=== PATIENT | female | born 1950 | race Caucasian/White ===

== ENCOUNTER 2017-09-24 12:27 | Emergency (ER) | payer OTHER ==
[~2017-09-24] VITALS: Ht 170.2 cm; Wt 49.9 kg
[~2017-09-24 12:27] MED LIST: ANTIBIOTIC; ASPIR 8181 MG PO; ASPIRIN81 M2; BACTRIM DS TAB1 EACH PO; BENADRYL25 MG PO; CLONAZEPAM 1 MG1 M1 PO; COUMADIN 4 MG TA4 M1 PO; COUMADIN6 MG PO; IRON325 PO; JANTOVEN10 MG PO; KEFLEX500 MG PO; LEXAPRO 10 MG T10 M1 PO; RESTLESS LEG MED; STOOL SOFTENER100 MG; STOOL SOFTENER100 MG PO; XANAX 0.5 MG0.5 M1 PO; ZOLOFT 50 MG TA50 M1; ZOLOFT25 MG PO
[2017-09-24] MEDS ORDERED: BACTRIM DS TAB1 EACH PO (12:38)
[2017-09-24 13:14] LABS: INFLUENZA A ANTIGEN None Detected (None Detect); INFLUENZA B ANTIGEN None Detected (None Detect)
[2017-09-24] MEDS ORDERED: ACETAMINOPHEN-1 EAC1 PO (13:30)
[2017-09-24] MEDS ORDERED: ZPAK PO (13:30)
[2017-09-24 13:39] VITALS: BP 116/43
== END 2017-09-24 13:40 | disposition home or self-care (01) ==
LOC: M.ERS 12:27
PROVIDERS: Physician Assistant
DX: J02.9 Acute pharyngitis, unspecified (principal); J34.89 Other specified disorders of nose and nasal sinuses; R05 Cough; I48.91 Unspecified atrial fibrillation; F32.9 Major depressive disorder, single episode, unspecified; Z87.440 Personal history of urinary (tract) infections; Z86.73 Personal history of transient ischemic attack (TIA), and cerebral infarction without residual deficits; Z88.1 Allergy status to other antibiotic agents; Z88.0 Allergy status to penicillin

== ENCOUNTER 2017-10-06 15:55 | Emergency (ER) | payer OTHER ==
[~2017-10-06] VITALS: Ht 170.2 cm; Wt 49.9 kg
[~2017-10-06 15:55] MED LIST changes: +ACETAMINOPHEN-1 EAC1 PO; +ZPAK PO
[2017-10-06 16:26] LABS: ABSOLUTE BASOPHILS 0.1 thou/uL (0.0-0.2); ABSOLUTE EOSINOPHILS 0.1 thou/uL (0.0-0.7); ABSOLUTE LYMPHOCYTES 1.3 thou/uL (0.8-5.3); ABSOLUTE MONOCYTES 0.5 thou/uL (0.0-1.2); ABSOLUTE NEUTROPHILS 3.1 thou/uL (1.6-8.1); EOSINOPHILS 2.2 %; HEMATOCRIT 36.4 % (37.0-47.0); HEMOGLOBIN 12.3 gm/dL (12.0-15.0); LYMPHOCYTES 26.1 %; MCH 32.3 pg (26.0-34.0); MCHC 33.8 g/dL (28.0-37.0); MCV 95.6 fL (80.0-100.0); MONOCYTES 9.8 %; MPV 8.8 fl. (7.2-11.1); NUCLEATED RBCS 0 /100WBC; PLATELET COUNT* 334 thou/uL (150-400); POLYS 60.9 %; RDW-CV 12.4 % (10.5-14.5); WBC 5.1 thou/uL (4.0-11.0)
[2017-10-06 16:30] LABS: ANION GAP 8 mmol/L (7-16); BUN 22 mg/dL (7-18); CALCIUM 9.1 mg/dL (8.5-10.1); CHLORIDE 108 mmol/L (98-107); CO2 28 mmol/L (21-32); CREATININE 1.3 mg/dL (0.6-1.3); GLUCOSE 123 mg/dL (70-99); POTASSIUM 3.6 mmol/L (3.5-5.1); SODIUM 144 mmol/L (136-145)
[2017-10-06 16:37] LABS: ALBUMIN 3.7 g/dL (3.4-5.0); ALKALINE PHOSPHATASE 75 U/L (46-116); SGOT 24 U/L (15-37); SGPT 20 U/L (30-65); TOTAL BILIRUBIN 0.8 mg/dL (<0.1-1.0); TOTAL PROTEIN 6.9 g/dL (6.4-8.2); TROPONIN-I LEVEL <0.06 ng/mL (<0.06)
[2017-10-06] MEDS ORDERED: ATIVAN1 MG PO (16:57)
[2017-10-06 17:21] VITALS: BP 161/55
--- NOTE | 2017-10-07 12:24 | EKG ---
[place] [address] ELECTROCARDIOGRAM REPORT Name: JARRETT DIAZ Room: [facility]#: [id number] Admission: 10/06/17 Attend Phys: Discharge: 10/06/17 Date of : 46 Report #: [id number] THIS REPORT FOR: //name// [facility] ED Test Date: 2017-10-06 Test Time: 16:02:29 Pat Name: JARRETT LEOBALKimberly Department: Room: Gender: F Bell [place]ck Hammerer: MS : 1950 Requested By: Brandon Damico Order Number: [id number] MD: Beau Chavez Measurements Intervals [place] Rate: 93 P: 76 WI: 48 QRS: 249 QRSD: 102 T: 59 QT: 382 QTc: 476 Interpretive Statements Atrial-sensed ventricular-paced rhythm No further analysis attempted due to paced rhythm Compared to ECG 02/08/2017 16:04:23 No significant changes Electronically Signed On 10-07-2017 12:23:55 GRADUATE RN by Beau Chavez [email or web address] <ELECTRONICALLY SIGNED> By: Beau Chavez MD, [facility] 10/07/17 1223 1602 160 Beau Chavez MD, FAC /EPI
== END 2017-10-06 17:23 | disposition home or self-care (01) ==
LOC: M.ERS 15:55
PROVIDERS: Emergency Medicine Emergency Medical Services
DX: F41.9 Anxiety disorder, unspecified (principal); F41.0 Panic disorder [episodic paroxysmal anxiety]; I48.91 Unspecified atrial fibrillation; F32.9 Major depressive disorder, single episode, unspecified; Z86.73 Personal history of transient ischemic attack (TIA), and cerebral infarction without residual deficits; Z88.0 Allergy status to penicillin; Z88.1 Allergy status to other antibiotic agents

== ENCOUNTER 2017-12-18 09:40 | Emergency (ER) | payer OTHER ==
[~2017-12-18] VITALS: Ht 167.6 cm; Wt 56.0 kg
[~2017-12-18 09:40] MED LIST changes: +ATIVAN1 MG PO
[2017-12-18 10:03] LABS: URINE BILIRUBIN NEGATIVE (Negative); URINE BLOOD NEGATIVE (Negative); URINE CLARITY CLEAR; URINE COLOR YELLOW; URINE GLUCOSE-RANDOM NEGATIVE (Negative); URINE KETONES TRACE (Negative); URINE LEUKOCYTES-REFLEX NEGATIVE (Negative); URINE NITRITE-REFLEX NEGATIVE (Negative); URINE PROTEIN NEGATIVE (Negative); URINE SPECIFIC GRAVITY >= 1.030 (1.005-1.030); URINE UROBILINOGEN 0.2 E.U./dl (0.2-1.0)
[2017-12-18 10:17] LABS: ABSOLUTE EOSINOPHILS 0.2 thou/uL (0.0-0.7); ABSOLUTE LYMPHOCYTES 1.2 thou/uL (0.8-5.3); ABSOLUTE MONOCYTES 0.2 thou/uL (0.0-1.2); ABSOLUTE NEUTROPHILS 1.2 thou/uL (1.6-8.1); BASOPHILS 0.2 %; EOSINOPHILS 6.7 %; HEMATOCRIT 35.6 % (37.0-47.0); HEMOGLOBIN 12.3 gm/dL (12.0-15.0); LYMPHOCYTES 42.3 %; MCH 32.2 pg (26.0-34.0); MCHC 34.4 g/dL (28.0-37.0); MCV 93.6 fL (80.0-100.0); MONOCYTES 7.1 %; MPV 8.3 fl. (7.2-11.1); NUCLEATED RBCS 0 /100WBC; PLATELET COUNT* 213 thou/uL (150-400); POLYS 43.7 %; RBC 3.81 mil/uL (4.20-5.00); WBC 2.7 thou/uL (4.0-11.0)
[2017-12-18 10:39] LABS: ANION GAP 12 mmol/L (7-16); BUN 21 mg/dL (7-18); CHLORIDE 107 mmol/L (98-107); CO2 21 mmol/L (21-32); CREATININE 1.3 mg/dL (0.6-1.3); GLUCOSE 87 mg/dL (70-99); POTASSIUM 3.2 mmol/L (3.5-5.1); SODIUM 140 mmol/L (136-145)
[2017-12-18 10:46] LABS: ALBUMIN 3.9 g/dL (3.4-5.0); ALKALINE PHOSPHATASE 67 U/L (46-116); LIPASE 232 U/L (73-393); SGOT 25 U/L (15-37); SGPT 16 U/L (30-65); TOTAL BILIRUBIN 0.7 mg/dL (<0.1-1.0); TOTAL PROTEIN 7.1 g/dL (6.4-8.2); TROPONIN-I LEVEL <0.06 ng/mL (<0.06)
[2017-12-18] MEDS ORDERED: ULTRAM 50MG TAB50 MG PO (11:43)
[2017-12-18 12:28] VITALS: BP 134/52
[2017-12-18 12:31] LABS: INR 4.4; PROTIME 42.1 Seconds (9.20-11.50)
--- NOTE | 2017-12-18 14:58 | EKG ---
[place] [address] ELECTROCARDIOGRAM REPORT Name: JARRETT DIAZ [facility] [id number] Admission: 12/18/17 Attend Phys: Discharge: 12/18/17 Date of : 46 Report #: [id number] THIS REPORT FOR: //name// [facility] ED Test Date: 2017-12-18 Test Time: 10:10:44 Pat Name: AJRRETT DIAZ Department: Room: Gender: F Panama Hat Blocker: Shauna MATHUR : 1950 Requested By: Stewart Mandujano Order Number: [id number] MD: Beau Chavez Measurements Intervals [place] Rate: 86 P: 0 NC: 74 QRS: 250 QRSD: 100 T: QT: 418 QTc: 500 Interpretive Statements Atrially sensed Ventricular-paced rhythm No further analysis attempted due to paced rhythm Compared to ECG 10/06/2017 16:02:29 No changes noted Electronically Signed On 12-18-2017 14:58:05 CDT by Beau Chavez [email or web address] <ELECTRONICALLY SIGNED> By: Beau Chavez MD, [facility] 12/18/17 1458 1010 1010 Beau Chavez MD, [facility] /EPI
== END 2017-12-18 12:36 | disposition home or self-care (01) ==
LOC: M.ERS 09:40
PROVIDERS: Family Medicine
DX: R10.30 Lower abdominal pain, unspecified (principal); I48.91 Unspecified atrial fibrillation; F32.9 Major depressive disorder, single episode, unspecified; Z87.440 Personal history of urinary (tract) infections; Z86.73 Personal history of transient ischemic attack (TIA), and cerebral infarction without residual deficits; Z88.1 Allergy status to other antibiotic agents; Z88.0 Allergy status to penicillin

== ENCOUNTER → 2018-01-23 | Outpatient (CLI) | payer OTHER ==
[~2018-01-23] MED LIST changes: +ULTRAM 50MG TAB50 MG PO
[2018-01-23 10:46] LABS: INR 1.2; PROTIME 11.9 Seconds (9.20-11.50)
== END ==
LOC: M.LAB 03:58
PROVIDERS: Anesthesiology
DX: Z01.812 Encounter for preprocedural laboratory examination (principal)

== ENCOUNTER → 2018-03-28 | Outpatient (CLI) | payer OTHER | LOC: M.RAD 15:26 | DX: N91.2 Amenorrhea, unspecified (principal); I48.91 Unspecified atrial fibrillation; Z78.0 Asymptomatic menopausal state ==

== ENCOUNTER → 2018-06-18 | Outpatient (CLI) | payer OTHER | LOC: M.RAD 12:55 | DX: Z12.31 Encounter for screening mammogram for malignant neoplasm of breast (principal) ==

== ENCOUNTER → 2018-07-15 | Outpatient (CLI) | payer OTHER ==
[~2018-07-15] VITALS: Ht 170.2 cm; Wt 54.0 kg
[2018-07-15 08:47] LABS: HEMATOCRIT 35.6 % (37.0-47.0); MCH 32.4 pg (26.0-34.0); MCHC 33.7 g/dL (28.0-37.0); MCV 96.3 fL (80.0-100.0); NUCLEATED RBCS 0 /100WBC; PLATELET COUNT* 223 thou/uL (150-400); RDW-CV 13.1 % (10.5-14.5); WBC 3.6 thou/uL (4.0-11.0)
[2018-07-15 08:56] LABS: APTT 26.4 Seconds (25.0-31.3); INR 1.2; PROTIME 12.1 Seconds (9.20-11.50)
[2018-07-15 09:03] VITALS: BP 159/66
[2018-07-15 09:29] LABS: ABSOLUTE LYMPHOCYTES 1.1 thou/uL (0.8-5.3); ABSOLUTE NEUTROPHILS 2.4 thou/uL (1.6-8.1); ATYPICAL LYMPHS 7 %; METAMYELOCYTES 1 %
[2018-07-15 09:30] LABS: PLATELET ESTIMATE ADEQUATE
[2018-07-15 10:02] VITALS: BP 140/64
[2018-07-15 10:21] VITALS: BP 144/56
[2018-07-15 10:34] VITALS: BP 145/55
--- NOTE | 2018-07-25 18:07 | PATH ---
[address] [address] PATHOLOGY RPT PROCEDURE Name: EMILYMAR FLETCHER Room: [facility].#: [id number] Admission: 07/15/18 Date of : 46 Discharge: Report #: [id number] Path Case #: [id number] [facility] Accession Number: [id number] . 01 Material submitted: . PART A: BONE MARROW BX PART B: BONE MARROW CLOT PART C: BONE MARROW ASP PART D: PERIPHERAL SMEAR PART E: BONE MARROW FLOW . 01 Clinical history: . This is a 67-year-old woman with anemia, leukopenia and fatigue. . 02 Diagnosis: Bone marrow aspirate, biopsy, cell clot and peripheral blood: - Peripheral blood with mild leukopenia and rare circulating less mature myeloid cells and atypical / reactive appearing lymphocytes. - Normocellular bone marrow with trilineage hematopoiesis, mild trilineage dyspoiesis and no evidence of lymphoma or acute leukemia (see comment). - Rare interstitial non-necrotizing granulomas. - Only trace stainable iron. . (CLW:mmsanty; 07/16/18) . . Please see included [facility] report [id number]. AZJ/07/16/2018 . 02 Comment: Overall, the bone marrow is normocellular for the patient's age with trilineage hematopoiesis, mild dyspoiesis and no evidence of lymphoma or acute leukemia. Rare interstitial non-necrotizing granulomas are noted. Special stains for micro-organisms are pending and will be reported as an addendum. The dyspoiesis is mild and while it could possibly represent a low grade myelodysplastic syndrome, it does not meet the morphologic criteria for myeloid dysplasia. Of note, only trace stainable iron is identified. Correlation with clinical history, additional laboratory data and cytogenetics is recommended. . (CLW:mmsanty; 07/16/18) . 02 Addendum: . Properly-controlled special stains are performed: . Block A1: AFB - Negative for acid-fast bacilli GMS - [place] [address] PATHOLOGY RPT PROCEDURE Name: MAR GLOVER [id number] Admission: 07/15/18 Date of : 46 Discharge: Report #: [id number] Path Case #: [id number] . The final diagnosis remains unchanged. . (CLW:mml; 07/19/18) . . Professional services performed by [facility] at [facility], [address] [place] [address]. Technical services performed at [address] [place] [address]. [facility]/07/19/2018 Addendum Electronically Signed by Tete Krishna MD, Pathologist Addendum #2: Special studies [place] [facility] [address] [place] [address] [address], [place], [address], on case [id number], labeled with their number [id number], dated 07/24/2018. . Cytogenetic Analysis Report . RESULT: Normal Female Karyotype 46,XX(20) . Specimen Type: Bone Marrow . Indication for Study: Leukopenia, Anemia . INTERPRETATION: Cytogenetic analysis revealed no evidence of an acquired clonal abnormality. These findings should be interpreted in the context of clinical and histopathologic findings. . See Flow Cytometry report [id number] for further information. . Number of Metaphases Counted: 20 Banding: G-banding Number of Metaphase Cells Analyzed: 20 Band Level: 400 Number of Metaphase Cells Karyotyped: 2 Cultures Established: 24/48 hour unstimulated . . at [employer]. Jocelynn Torrez, PhD, FACMG Director of Clinical Cytogenetics . Disclaimer This Test was performed by [facility]. at [address] [place] [address], [address], [place], [address]. . [facility] is a business unit of [employer] a wholly-owned subsidiary of [place] [address] PATHOLOGY RPT PROCEDURE Name: MAR GLOVER Room: [facility]#: [id number] Admission: 07/15/18 Date of : 46 Discharge: Report #: [id number] Path Case #: [id number] [employer]. . . Any image(s) that accompany this report is/are a underwriting account representative image(s) only and should not be used to render a diagnosis. . Based on the resolution of this study, standard cytogenetic methodology does not routinely detect subtle or sub-microscopic rearrangements or low level mosaicism. . A complete copy of the report is on file. . Professional services performed by [facility] at [address], [place] [address]. Technical services performed by [employer]. at [address], [place] [address]. . (AM[facility] 07/24/2018) . [place]/07/25/2018 Addendum Electronically Signed by Tete Krishna MD, Pathologist . 02 Electronically signed: . Tete Krishna MD, Pathologist NPI- [id number] . 01 Gross description: . A. The specimen is received in formalin, labeled "Mar Glover, left hip bone core", are two irregular fragments of faria brown, hemorrhagic bone faria brown, hemorrhagic bone measuring 0.2 x 0.1 x 0.1 and 0.4 x 0.2 x 0.1 cm, entirely submitted in A1 after decalcification. . B. The specimen is received in formalin, labeled "Mar Glover, left hip clot", is a dark brown hemorrhagic clot measuring 2.0 x 1.7 x 1.5 cm, entirely submitted in B1-B3. (SWS; 07/15/2018) SHS/SHS . 02 Microscopic: . CBC Data (07/15/18): WBC 3,600/uL, RBC 3.70, hemoglobin 12.0 g/dL, hematocrit 35.6%, MCV 96.3 fL, MCH 32.4 pg, MCHC 33.7 g/dL, RDW 13.1%, and platelet count 223,000/uL. White blood cell differential: segs 67%, lymphs 24%, monos 1%, metas 1%, and atypical lymphs 7%. . Peripheral Blood Smear: Cytomorphological examination of the Campbell's stained peripheral blood smear confirms the provided data. Red blood cells are normocytic and are without significant anisopoikilocytosis. White blood cells are mildly decreased in number. There are predominantly [place] [address] PATHOLOGY RPT PROCEDURE Name: MAR GLOVER Room: [facility]#: [id number] Admission: 07/15/18 Date of : 46 Discharge: Report #: [id number] Path Case #: [id number] are without significant dyspoiesis or significant left shift. Lymphocytes are predominantly small, round, and mature appearing with condensed chromatin and scant cytoplasm with admixed large granular lymphocytes and reactive-appearing lymphocytes. On scanning, no markedly atypical lymphoid cells are seen. Monocytes are mature. Platelets are adequate in number and mainly normal in morphology with rare larger platelets noted. . Aspirate Smears: Cytomorphological examination of the Campbell's stained aspirate smears shows spicules present. The overall cellularity is approximately 20-30%. The myeloid to erythroid ratio is 2:1. Full myeloid maturation is identified and is mildly dyspoietic with abnormal nuclear lobation focally. Erythroid maturation is mildly dyserythropoietic with irregular nuclear contours and mildly left shifted maturation. In a 500 cell differential, there are 1% blasts (no Anup rods are seen), 57% more differentiated myeloids, 28% erythroid precursors and 14% lymphocytes. Megakaryocytes are proportional in number and both normal and abnormal in morphology with variable sizes and nuclear abnormalities including small and/or hypolobated forms present. No lymphoid aggregates or markedly atypical lymphoid cells are seen. Small collections of histiocytes are noted. Plasma cells are without atypia. Iron stain of the aspirate smear shows only trace stainable iron. No ringed sideroblasts are identified. . Core Biopsy and Cell Clot: The decalcified bone marrow core biopsy is small, but adequate. The bone marrow is normocellular with an overall cellularity of approximately 30%. The myeloid to erythroid ratio is 2:1. Myeloid and erythroid maturation are mildly dyspoietic. Megakaryocytes are normal in number and both normal and abnormal in morphology. A rare interstitial lymphoid aggregate composed of small lymphocytes is noted. Rare small non-necrotizing granulomas are present. No markedly atypical lymphoid cells are seen. Bony trabeculae and blood vessels are unremarkable. The cell clot has a rare spicule present that is similar in cellularity and differential morphology as previously described. . Properly controlled special stains are performed. . Block A1: Iron - 0/4+ iron positivity Reticulin - No significant reticulin fibrosis . Iron (block B1, B2 and B3) - 0/4+ iron positivity with a rare spicule present . Flow Cytometry: Flow cytometric immunophenotypic analysis was performed at [facility]. The diagnosis is "no immunophenotypic evidence of an abnormal myeloid maturation or an increased blast population, no immunophenotypic evidence of a T-cell or B-cell lymphoproliferative disorder." [place] [address] PATHOLOGY RPT PROCEDURE Name: MAR GLOVER Room: [facility]#: [id number] Admission: 07/15/18 Date of : 46 Discharge: Report #: [id number] Path Case #: [id number] 7% lymphocytes. Of the lymphocytes, there are 0.9% B-cells that are polytypic / polyclonal. T-cells have a CD4/CD8 ratio of 3.6 and no aberrant T-cell antigen expression. There are 0.4% myeloid blasts. Flow cytometric analysis detected no immunophenotypic evidence of increased blast population. Please see separate flow cytometry report from [facility] ([id number]). . Cytogenetics: Cytogenetic chromosomal analysis is pending at [facility] ([id number]). . (CLW:edwin; 07/16/18) . . . Special studies report received from [facility], [address] [place] [address], [address], [place], [address], on case [id number], labeled with their number [id number], dated 07/16/2018. . Flow Cytometry: Hematologic Neoplasia Assessment . Clinical History Leukopenia, anemia and fatigue . Indication for Study Evaluation for hematolymphoid neoplasia . Specimen Bone Marrow Aspirate . Viability 90% (7AAD exclusion) . Interpretation Bone Marrow Aspirate: - No immunophenotypic evidence of an abnormal myeloid maturation or an increased blast population. - No immunophenotypic evidence of a T-cell or B-cell lymphoproliferative disorder. . Comments Flow cytometric analysis detected no immunophenotypic evidence of increased blast population. Myeloproliferative and myelodysplastic disorders cannot be categorically excluded by flow cytometric analysis. Correlation with available clinical, laboratory, and pending bone marrow morphologic data is recommended for an accurate diagnosis. Cytogenetic studies are also pending and will be reported separately. . Populations Analyzed [facility] [address] [address] PATHOLOGY RPT PROCEDURE Name: AHMETESSENCEMAR CHANCE Room: [facility]#: [id number] Admission: 07/15/18 Date of : 46 Discharge: Report #: [id number] Path Case #: [id number] Myeloid Blasts: 0.4% No significant immunophenotypic abnormalities Lymphocytes: 7% B-cells: 0.9%, polytypic/polyclonal sIg light chain pattern T-cells: no significant abnormalities of the markers tested CD4+ T-cells: 3.5% (including 0.8% CD57+ cells) CD8+ T-cells: 1.0% (including 0.3% CD57+ cells) CD4:CD8: 3.6 NK cells: 1.1% Neutrophilic Cells: 84% No significant abnormalities of the markers tested Monocytic Cells: 4% No significant abnormalities of the markers tested Eosinophils: 3% No relative increase Basophils: 0.4% No relative increase Plasma Cells: 0.1% Few detected; no overt abnormalities of the surface markers tested (plasma cells are typically underrepresented by flow cytometry; cytoplasmic light chains were not assessed) Hematogones: 0.4% Normal B-cell precursors CD45 Negative 0.4% No significant reactivity with the markers Events/Debris: tested (may represent unlysed red blood cells, erythroid precursors, platelets, debris, etc.) (erythroid precursors may be underrepresented due to sample lysis/processing) . . Morphologic Evaluation A slide was reviewed for quality eng purposes only. . Specimen Description Total Cell Yield: 5.36 X 10 and 6 . Reagent(s) Used CD2, CD3, CD4, CD5, CD7, CD8, CD10, CD11b, CD13, CD14, CD16, CD19, CD20, CD33, CD34, CD38, CD45, CD56, CD57, CD64, CD117, HLA-DR, kappa, lambda . at [facility]. Jerrod Julien MD Pathologist . . Intended Use Flow cytometry is optimally used to immunophenotypically characterize abnormal populations when they are detected. Negative flow cytometry results do not exclude lymphoma or neoplasia. Possible false negative flow cytometry results may occur in, but are not limited to, the following: neoplastic cells in Hodgkin lymphoma [place] [address] PATHOLOGY RPT PROCEDURE Name: MAR GLOVER Room: [facility]#: [id number] Admission: 07/15/18 Date of : 46 Discharge: Report #: [id number] Path Case #: [id number] represented by routine clinical flow cytometry; neoplastic cells may be lost or inadequately represented due to degeneration, sample processing, sampling artifact, or patchy involvement; plasma cells are typically underrepresented by flow cytometry; immature cells/blasts may be underrepresented due to hemodilution; myeloproliferative disorders and low grade myelodysplasia may not have immunophenotypic abnormalities or increased blasts. Correlation with all available clinical, laboratory, and morphologic data is always necessary to assess for the possibility of false negative flow cytometry results and to establish a diagnosis. Each marker in this analysis was used to assess for potential antigenic abnormalities or to evaluate detected abnormalities. . Disclaimer(s) This test was performed at [facility]. at [address], [place], [address] - [employer] Mechan[employer]: Richard Valera MD. [employer] is a business unit of [employer] a wholly-owned subsidiary of [employer]. . Any image or images that accompany this report are underwriting account representative images only and should not be used to render a diagnosis. . This test was developed and its performance characteristics determined by [employer]. It has not been cleared or approved by the Food and Drug Administration (FDA). The FDA has determined that such clearance or approval is not necessary. . For inquiries, the physician may contact Lab: [phone] . A complete copy of the report is on file. . Professional services performed by [facility] at [address], [place] [address]. Technical services performed by [employer]. at [address], [place] [address]. . (AMJ 07/16/2018) . 02 Pathologist provided ICD-10: D72.819, D75.89 . 02 CPT . 391175, 297037, 782560, 391496, 347442, 889555, 625880, 138581, 005098, 532493, 955403, 349956, 445398 Specimen Comment: A courtesy copy of this report has been sent to Specimen Comment: [phone], , . Specimen Comment: Report sent to ,DR VILLEDA / [place] [address] PATHOLOGY RPT PROCEDURE Name: MAR GLOVER Room: [facility].#: [id number] Admission: 07/15/18 Date of : 46 Discharge: Report #: [id number] Path Case #: [id number] Specimen Comment: A duplicate report has been generated due to demographic updates. Performed at: 01 [facility] [address] [address], [place], [place] [id number] MD Blake Portillo MD Phone: [phone] Performed at: 02 [facility] [address], [place], [place] [id number] MD Davidson Montilla MD Phone: [phone]
== END | disposition home or self-care (01) ==
LOC: M.INT 07-12 11:00
PROVIDERS: Radiology Diagnostic Radiology
DX: D72.819 Decreased white blood cell count, unspecified (principal); D75.89 Other specified diseases of blood and blood-forming organs; N39.0 Urinary tract infection, site not specified; I48.91 Unspecified atrial fibrillation; F32.9 Major depressive disorder, single episode, unspecified; F41.9 Anxiety disorder, unspecified; Z98.51 Tubal ligation status; Z98.890 Other specified postprocedural states; Z86.73 Personal history of transient ischemic attack (TIA), and cerebral infarction without residual deficits; Z95.810 Presence of automatic (implantable) cardiac defibrillator; Z79.01 Long term (current) use of anticoagulants; Z79.899 Other long term (current) drug therapy; Z88.0 Allergy status to penicillin; Z88.8 Allergy status to other drugs, medicaments and biological substances; Z79.82 Long term (current) use of aspirin

== ENCOUNTER → 2019-06-19 | Outpatient (CLI) | payer OTHER | LOC: M.RAD 13:40 | DX: Z12.31 Encounter for screening mammogram for malignant neoplasm of breast (principal) ==

== ENCOUNTER 2019-07-01 14:51 | Inpatient (IN) | payer OTHER ==
[~2019-07-01] VITALS: Ht 170.2 cm; Wt 56.2 kg
[2019-07-01 14:57] VITALS: BP 185/66
[2019-07-01 15:24] LABS: ABSOLUTE BASOPHILS 0.1 thou/uL (0.0-0.2); ABSOLUTE EOSINOPHILS 0.3 thou/uL (0.0-0.7); ABSOLUTE LYMPHOCYTES 1.3 thou/uL (0.8-5.3); ABSOLUTE MONOCYTES 0.6 thou/uL (0.0-1.2); ABSOLUTE NEUTROPHILS 3.2 thou/uL (1.6-8.1); BASOPHILS 1.1 %; EOSINOPHILS 4.7 %; HEMATOCRIT 33.6 % (37.0-47.0); HEMOGLOBIN 11.4 gm/dL (12.0-15.0); LYMPHOCYTES 23.9 %; MCV 94.1 fL (80.0-100.0); MPV 8.7 fl. (7.2-11.1); NUCLEATED RBCS 0 /100WBC; PLATELET COUNT* 243 thou/uL (150-400); POLYS 59.3 %; RBC 3.57 mil/uL (4.20-5.00); RDW-CV 12.9 % (10.5-14.5); WBC 5.4 thou/uL (4.0-11.0)
[2019-07-01 15:27] LABS: URINE BILIRUBIN NEGATIVE (Negative); URINE BLOOD 3+ (Negative); URINE CLARITY CLOUDY; URINE COLOR RED; URINE GLUCOSE-RANDOM NEGATIVE (Negative); URINE KETONES NEGATIVE (Negative); URINE LEUKOCYTES-REFLEX NEGATIVE (Negative); URINE NITRITE-REFLEX NEGATIVE (Negative); URINE PROTEIN 3+ (Negative); URINE SPECIFIC GRAVITY 1.025 (1.005-1.030); URINE UROBILINOGEN 0.2 E.U./dl (0.2-1.0)
[2019-07-01 15:29] LABS: CALCIUM 8.2 mg/dL (8.5-10.1); CREATININE 1.1 mg/dL (0.6-1.3); POTASSIUM 3.6 mmol/L (3.5-5.1)
[2019-07-01 15:33] LABS: APTT 69.6 Seconds (25.0-31.3); PROTIME 113.4 Seconds (9.20-11.50)
[2019-07-01 15:39] LABS: ALBUMIN 3.7 g/dL (3.4-5.0); TOTAL BILIRUBIN 0.6 mg/dL (<0.1-1.0); TOTAL PROTEIN 7.3 g/dL (6.4-8.2)
[2019-07-01 15:48] LABS: SQUAMOUS NONE SEEN /LPF (0-3); URINE WBC-REFLEX 6-15 Few /HPF (0-5)
[2019-07-01 15:49] LABS: CASTS None Seen /LPF (None Seen); CRYSTALS None Seen /LPF (None Seen); URINE RBC >20 Many /HPF (0-2)
[2019-07-01 15:49] LABS: INR 12.1
[2019-07-01 17:57] VITALS: BP 166/75
[2019-07-01 18:00] VITALS: BP 175/69
--- NOTE | 2019-07-01 19:05 | NUR ---
ASSUMED PT CARE AT 1810. GET SITUATED TO ROOM. TELE IN PLACED TRACING V PACED. PT BEDREST. O2 SAT 90'S RA. PT DENIES PAIN. PT HEMATURIA NOTED. PT HAS UROLOGY, NEUROLOGY, REHAB CONSULT. PT FOR FFP TRANSFUSION. PT ADMISSION ASSESSMENT CHARTED. HOURLY ROUNDING, FALL RISK. WILL CONTINUE TO MONITOR.
[2019-07-01 20:49] VITALS: BP 151/60
[2019-07-01 21:35] VITALS: BP 151/55; BP 156/54; BP 156/63; BP 157/51
[2019-07-02 04:00] VITALS: BP 144/43
[2019-07-02 05:13] LABS: ABSOLUTE BASOPHILS 0.1 thou/uL (0.0-0.2); ABSOLUTE EOSINOPHILS 0.2 thou/uL (0.0-0.7); ABSOLUTE LYMPHOCYTES 1.2 thou/uL (0.8-5.3); ABSOLUTE MONOCYTES 0.6 thou/uL (0.0-1.2); ABSOLUTE NEUTROPHILS 3.5 thou/uL (1.6-8.1); EOSINOPHILS 3.5 %; HEMATOCRIT 28.4 % (37.0-47.0); HEMOGLOBIN 9.7 gm/dL (12.0-15.0); MCH 31.8 pg (26.0-34.0); MCHC 34.1 g/dL (28.0-37.0); MCV 93.2 fL (80.0-100.0); MPV 8.7 fl. (7.2-11.1); NUCLEATED RBCS 0 /100WBC; PLATELET COUNT* 200 thou/uL (150-400); POLYS 62.5 %; RBC 3.05 mil/uL (4.20-5.00); RDW-CV 12.6 % (10.5-14.5); WBC 5.6 thou/uL (4.0-11.0)
--- NOTE | 2019-07-02 05:26 | NUR ---
PT IS ABLE TO COMMUNICATE HER NEEDS TO STAFF EFFECTIVELY. SHE HAS DENIED THE NEED FOR PAIN MEDICATION UP TO THIS TIME. PT RECEIVED 1 UNIT FFP OVERNIGHT; TOLERATED WELL UP TO THIS TIME. RENAL US TENTATIVELY SCHEDULED FOR LATER TODAY. NEUROLOGY, UROLOGY, AND REHAB CONSULTS ORDERED.
[2019-07-02 05:33] LABS: PROTIME 23.8 Seconds (9.20-11.50)
[2019-07-02 05:37] LABS: APTT 42.1 Seconds (25.0-31.3); INR 2.4
[2019-07-02 05:44] LABS: ALBUMIN 3.1 g/dL (3.4-5.0); ALKALINE PHOSPHATASE 74 U/L (46-116); ANION GAP 8 mmol/L (7-16); BUN 19 mg/dL (7-18); CALCIUM 7.8 mg/dL (8.5-10.1); CHLORIDE 108 mmol/L (98-107); CO2 27 mmol/L (21-32); CREATININE 1.1 mg/dL (0.6-1.3); GLUCOSE 95 mg/dL (70-99); SGOT 23 U/L (15-37); SGPT 22 U/L (30-65); SODIUM 143 mmol/L (136-145); TOTAL BILIRUBIN 1.1 mg/dL (<0.1-1.0); TOTAL PROTEIN 6.2 g/dL (6.4-8.2); TROPONIN-I LEVEL <0.06 ng/mL (<0.06)
[2019-07-02 07:30] VITALS: BP 148/53
--- NOTE | 2019-07-02 11:03 | EKG ---
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: : 1950 Requested By: Stewart Mandujano Order Number: [id number] MD: Rolly Resendez Measurements Intervals [place] Rate: 85 P: 80 MN: 137 QRS: 247 QRSD: 134 T: 70 QT: 436 QTc: 519 Interpretive Statements Ventricular-paced rhythm No further analysis attempted due to paced rhythm Compared to ECG 12/18/2017 10:10:44 No significant changes Electronically Signed On 07-02-2019 11:03:41 SEROLOGIST by Rolly Resendez [email or web address] <ELECTRONICALLY SIGNED> By: Rolly Resendez MD, [facility] 07/02/19 1103 1518 1518 Rolly Resendez MD, [facility] /EPI
--- NOTE | 2019-07-02 11:47 | NUR ---
ASSUMED PT CARE AT 0800. AOX4, UP SBA, O2 SAT 90'S RA. TRACING V PACED ON TELE. PT HAD RENAL US. PT FOR POST VOID RESIDUAL MONITOR. PT URINE OBSERVED, NO BLEEDING THIS TIME. PT NPO FOR CT ABDOMEN. VSS, AM ASSESSMENT CHARTED, CALL LIGHT WITHIN REACH, WILL CONTINUE TO MONITOR.
[2019-07-02 12:19] VITALS: BP 133/62
--- NOTE | 2019-07-02 15:16 | NUR ---
Pt out of room when CM went to assess
[2019-07-02 15:35] VITALS: BP 147/54
[2019-07-02 20:00] VITALS: BP 125/55
[2019-07-03] VITALS: BP 130/46
[2019-07-03 04:00] VITALS: BP 126/45
[2019-07-03 04:35] LABS: INR 1.3; PROTIME 13.5 Seconds (9.20-11.50)
[2019-07-03 05:03] LABS: CALCIUM 8.8 mg/dL (8.5-10.1); CREATININE 1.1 mg/dL (0.6-1.3); POTASSIUM 4.1 mmol/L (3.5-5.1)
--- NOTE | 2019-07-03 06:53 | NUR ---
Pt is aox4, running a-paced SR on telemetry, respirations are even and unlabored. Pt is in no acute distress at this time.
--- NOTE | 2019-07-03 07:01 | NUR ---
THIS RN AGREES WITH THE ASSESMENT AND CHARTING OF SEAMUS BLOOD.
[2019-07-03 07:45] VITALS: BP 133/53
[2019-07-03 08:27] LABS: HEMATOCRIT 29.2 % (37.0-47.0)
[2019-07-03] MEDS ORDERED: LOVENOX80 MG/0.8 SUBQ (09:17)
[2019-07-03 09:18] VITALS: BP 133/53
--- NOTE | 2019-07-03 10:44 | NUR ---
ASSUMED CARE OF PT AT 0730. PT RESTING IN BED WAITING FOR BREAKFAST. A&0X4, INTERMITTENT EXPRESSIVE APHASIA NOTED FROM PREVIOUS STROKE. DENIES ANY PAIN OR SHORTNESS OF BREATH AT THIS TIME. TRACING V PACED ON THE MANUAL EQUIPMENT MECHANIC. ON RA SAT 95%. PT STATES SHE HAS NOT HAD A BOWEL MOVEMENT IN 4 DAYS. ACTIVE BOWEL SOUNDS NOTED, ABDOMEN SOFT. PRN DULCOLAX AND MILK OF MAGNESIUM GIVEN. REFER TO EMAR. PT UP WITH SBA AND WALKER TO BATHROOM. PT VOIDING WELL-DARK YELLOW URINE NOTED- NO HEMATURIA NOTED. NEURO HERE TO SEE PT. ORDERS RECEIVED FOR CT HEAD AND OKAY FOR DISCHARGE AFTER IF NOTHING ACUTE. UROLOGY CALLED THIS AM AND STATED PT CAN BE DISCHARGED AND FOLLOW UP WITH DR SPENCE OUTPT FOR OUTPT CYSTOSCOPY. PT GOAL FOR TODAY IS COMPLETE CT HEAD, REMAIN FREE FROM HEMATURIA AND DISCHARGE PLANNING TO HOME. AM ASSESSMENT CHARTED. MEDICATIONS PER MAR. PT REPOSITIONS SELF. HOURLY ROUNDING OBSERVED. BED IN LOW POSITION. CALL LIGHT WITHIN REACH. WILL CONTINUE PLAN OF CARE.
--- NOTE | 2019-07-03 12:58 | NUR ---
DISCHARGE ORDERS RECEIVED. DISCHARGE INSTRUCTIONS, CARE NOTES, SCRIPTS AND FOLLOW UP APPTS GIVEN TO PT. PT COMMUNICATES UNDERSTANDING OF DISCHARGE TEACHING. IV AND BI ARCHITECT REMOVED. PT DISCHARGED WITH ALL BELONGINGS AND PAPERWORK VIA WHEELCHAIR WITH NURSING STAFF TO SONS OWN PERSONAL VEHICLE.
--- NOTE | 2019-07-11 13:36 | CON ---
[facility] [address] [place] [address] CONSULTATION Name: JARRETT DIAZ Room: [address] IN M.R.#: [id number] Admission: 07/01/19 Attend Phys: Odalys Scott Discharge: 07/03/19 Date of : 46 Report #: [id number] THIS REPORT FOR: //name// CC: Antonieta Valle DATE OF SERVICE: 07/02/2019 HISTORY OF PRESENT ILLNESS: This is a 68-year-old female patient who was seen by me because she indicated her aphasia is worse. She indicated she had a stroke about 12 years ago. That was following a cardiac surgery for mitral valve. She lost her speech and she was weak on the right side. Her weakness became better and speech became better, but 3 weeks ago, she had an episode where everything became worse again. She is not a straightforward about the history and she has other history summarized in her old records, which she does not give properly. REVIEW OF SYSTEMS: Indicate when she came here she had some hypertension. She is over anticoagulated and she was having hematuria. She does indicate her aphasia is worse. She had some flank pain. She had toe surgery, tubal ligation. Apparently, there is a history of atrial fibrillation and mitral valve replacement. She had a stroke in the past. She has a history of depression. She had been admitted with overdose. She does not want to talk about that history. She has some fatigue. She has a history of chronic UTI. Her lab indicated that she appeared to be anemic and her hemoglobin has fallen some. She was hypertensive when she came in. She is not complaining of any visual, ENT, cardiac, respiratory, GI, musculoskeletal, constitutional, dermatological, hematological, psychiatric, throat or allergic symptom associated with present symptomatology. PAST MEDICAL HISTORY: Positive for stroke 12 years ago, which was in relation to the surgery on the heart. FAMILY HISTORY: Negative for any early age stroke. SOCIAL HISTORY: She does not smoke or drink any alcohol. PHYSICAL EXAMINATION: The patient's examination indicated the patient is alert, responsive. She does have speech difficulty. Her memory looks impaired, but that may be her baseline. Cranial nerve examinations appear unremarkable. She moves both sides symmetrically. She indicates the position sense is somewhat diminished on the right side. Reflexes does look somewhat hyper on the right side. Tone looks symmetrical. There is no meningeal sign. There is no carotid bruit. Cardiac examination indicates she had a valve replacement. No respiratory difficulty was noted. Blood pressure is 148/53, respiration is 18, pulse is 81, temperature [place] [address]. [place] [address] CONSULTATION Name: JARRETT DIAZ CHANCE Room: [address] M.R.#: [id number] Admission: 07/01/19 Attend Phys: Odalys Scott Discharge: 07/03/19 Date of : 46 Report #: [id number] Her hemoglobin is 9.7. IMPRESSION: Aggravation of her preexisting aphasia that may be related to the patient's uncontrolled hypertension; however, aggravation of her stroke need to be excluded. It looks like she had an MRI in the past. I will ask Radiology to check and if MRI can be done that will be the best test for her to do. The options will be limited in this patient until we see any blockage of her large vessels. We will see what this workup shows. She wants to proceed with this and we will arrange that. Thank you very much for this referral. <ELECTRONICALLY SIGNED> By: Puma Boyer MD 07/11/19 1336 1013 1108Puma Boyer MD /nt
== END 2019-07-03 13:00 | disposition home or self-care (01) | DRG 813 ==
LOC: M.ERS 14:51 → M.2W 15:57 → M.TBA-ER 15:57 → M.2W 17:59
PROVIDERS: Family Medicine; ADMIT Internal Medicine
PROC: 30233K1 Transfusion of Nonautologous Frozen Plasma into Peripheral Vein, Percutaneous Approach (ICD-10-PCS; principal; 2019-07-01)
DX: D68.32 Hemorrhagic disorder due to extrinsic circulating anticoagulants (principal); E44.0 Moderate protein-calorie malnutrition; R47.01 Aphasia; N39.0 Urinary tract infection, site not specified; Z68.1 Body mass index [BMI] 19.9 or less, adult; R31.0 Gross hematuria; I16.0 Hypertensive urgency; I10 Essential (primary) hypertension; T45.515A Adverse effect of anticoagulants, initial encounter; I48.91 Unspecified atrial fibrillation; F32.9 Major depressive disorder, single episode, unspecified; Z95.2 Presence of prosthetic heart valve; Z86.73 Personal history of transient ischemic attack (TIA), and cerebral infarction without residual deficits; Z95.810 Presence of automatic (implantable) cardiac defibrillator; Z79.82 Long term (current) use of aspirin; Z79.01 Long term (current) use of anticoagulants; Z88.0 Allergy status to penicillin; Z82.3 Family history of stroke; Z80.9 Family history of malignant neoplasm, unspecified; Z82.5 Family history of asthma and other chronic lower respiratory diseases; Z88.1 Allergy status to other antibiotic agents; Y92.89 Other specified places as the place of occurrence of the external cause

== ENCOUNTER → 2019-08-07 | Outpatient (CLI) | payer OTHER ==
[~2019-08-07] MED LIST changes: +CIPRO250 M1 PO; +LEVSIN0.125 MG PO; +LOVENOX60 MG/0.6 SUBQ; +LOVENOX80 MG/0.8 SUBQ; +NORCO 5-325 TA1 EAC1 PO; +SERTRALINE HCL50 MG PO
== END ==
LOC: M.CT 11:22
DX: I63.9 Cerebral infarction, unspecified (principal); G93.89 Other specified disorders of brain; Z88.1 Allergy status to other antibiotic agents; Z88.0 Allergy status to penicillin; Z95.810 Presence of automatic (implantable) cardiac defibrillator

== ENCOUNTER → 2019-08-13 | Day surgery (SDC) | payer OTHER ==
[2019-08-13 07:00] LABS: HEMATOCRIT 33.5 % (37.0-47.0); HEMOGLOBIN 11.3 gm/dL (12.0-15.0); MCH 32.1 pg (26.0-34.0); MCHC 33.7 g/dL (28.0-37.0); MCV 95.2 fL (80.0-100.0); MPV 8.5 fl. (7.2-11.1); RBC 3.52 mil/uL (4.20-5.00); RDW-CV 13.3 % (10.5-14.5); WBC 3.6 thou/uL (4.0-11.0)
[2019-08-13 07:17] LABS: CALCIUM 8.7 mg/dL (8.5-10.1); CREATININE 1.2 mg/dL (0.6-1.3); INR 1.1; POTASSIUM 3.5 mmol/L (3.5-5.1); PROTIME 11.3 Seconds (9.20-11.50)
[2019-08-13 07:21] LABS: ALBUMIN 3.7 g/dL (3.4-5.0); TOTAL BILIRUBIN 0.9 mg/dL (<0.1-1.0); TOTAL PROTEIN 7.1 g/dL (6.4-8.2)
--- NOTE | 2019-08-15 10:53 | OP ---
[address] [address] OPERATIVE REPORT Name: JARRETT DIAZ Room: [facility].#: [id number] Admission: 08/13/19 Attend Phys: Michael Blanco MD Discharge: Date of : 48 Report #: [id number] THIS REPORT FOR: //name// CC: [facility] Antonieta Blanco DATE OF SERVICE: 08/13/2019 PREOPERATIVE DIAGNOSES: Gross hematuria with right proximal ureteral filling defect. POSTOPERATIVE DIAGNOSES: Gross hematuria with right proximal ureteral filling defect, likely blood clot from sloughed papilla. PROCEDURE PERFORMED: Cystoscopy, right retrograde pyelogram, right renal pelvic washings, right renal upper calyceal biopsy and fulguration and JJ stent placement. SURGEON: Michael Blanco MD COMPLICATIONS: None. DRAINS: Include a 6 x 26-cm stent. SPECIMEN: Biopsies from right upper pole renal tamir and washings from right renal pelvis. ANESTHETIC: General. BLOOD LOSS: Minimal. COMPLICATIONS: None. STATEMENT OF MEDICAL INDICATION: This is a 68-year-old female, who is anticoagulated, who recently presented to [facility] and was admitted with an INR of 8.[address] scan revealed a right proximal filling defect in the ureter compatible with either blood clot or tumor. The patient has since resolved her hematuria, but due to the renal lesion and the recent gross hematuria, she planned to proceed with cystoscopy, right retrograde pyelogram, possible renal biopsy and JJ stent. The patient and her spouse understand the procedure, risks, potential complications, including but not limited to bleeding, infection, injury to the urinary tract, gross hematuria, which will be more significant due to her anticoagulation, need for additional procedures. [address] [address] OPERATIVE REPORT Name: JARRETT DIAZ [id number] Admission: 08/13/19 Attend Phys: Michael Blanco MD Discharge: Date of : 48 Report #: [id number] DESCRIPTION OF PROCEDURE: Following informed consent, the patient was taken to the operating room and placed under general anesthesia. Cystoscopy was carried out after prepped and draped in sterile fashion and revealed a normal-appearing bladder with no evidence of bladder tumor or other bladder lesions. Right ureteral orifice was cannulated using a Pollack catheter. Retrograde pyelogram was performed, which revealed no filling defect in the proximal ureter. The renal calices appeared to be sharp. Due to the history of gross hematuria and bleeding from that kidney; however, it was felt necessary to proceed with ureteroscopy. Ureteral access sheath was then placed with 11 x 13 ureteral access sheath, first with the inner stylet, then with the outer sheath. This was passed under fluoroscopic guidance and the flexible ureteroscope was passed up into the proximal ureter. Inspection of the proximal ureter was normal and then each of the individual calices was examined. There were hypertrophied papilla and some mid pole calices. On upper pole tamir, there appeared to be some inflammatory change, possibly compatible with a recently sloughed papilla as a source of her bleeding and filling defect. This area was biopsied then twice using the [place] forceps and then fulgurated using the [place] electrode. Hemostasis was obtained. A wire was placed into the renal collecting system and then the cystoscope was backloaded over the wire and a 6 x 26-cm stent was placed with a coil in the renal pelvis and a coil in the bladder. Bladder was drained. The patient was given a Toradol injection, B and O suppository, Uro-Jet per urethra and returned to recovery room in satisfactory condition. She will plan to return to the office in 1 week for cysto and stent removal. She does not need a KUB. <ELECTRONICALLY SIGNED> By: Michael Blanco MD 08/15/19 1053 0833 0923Michael Blanco MD /silvino
--- NOTE | 2019-08-15 13:07 | PATH ---
[address] [address] PATHOLOGY RPT PROCEDURE Name: MAR GLOVER Room: [facility].#: [id number] Admission: 08/13/19 Date of : 46 Discharge: Report #: [id number] Path Case #: [id number] [facility] Accession Number: [id number] . 01 Material submitted: . kidney - BIOPSIES RIGHT UPPER POLE RENAL CALYX. Modifiers: right, upper . 01 Clinical history: . Gross hematuria . 02 Diagnosis: Biopsies right upper pole renal calyx: - Benign urothelium with mild chronic inflammation and focal atypia, negative for high-grade dysplasia. See comment. (LORNA:diya; 08/15/2019) MBR 08/15/2019 1149 Local . 02 Comment: Reviewed with Dr. Beau Pedersen and Dr. Elizabeth Javed who agree with the diagnosis. (LORNA:field logistics coordinator; 08/15/2019) . 02 Electronically signed: . Aj Guerrero MD, Pathologist NPI- [id number] . 01 Gross description: . Received in formalin labeled "Mar Glover, biopsies right upper pole renal calyx," are multiple segments of faria soft tissue measuring 0.3 x 0.1 x 0.1 cm in aggregate dimensions. The specimen is filtered and entirely submitted in cassette A1. Due to the minute nature of the specimen, it may not survive processing. (TSD; 08/13/2019) TOB/TOB 08/13/2019 1815 Local . 02 Pathologist provided ICD-10: N03.9 . 02 CPT . 181435 Specimen Comment: A courtesy copy of this report has been sent to [phone] Specimen Comment: [phone] Specimen Comment: Report sent to / DR VILLEDA Performed at: [address] [facility], [place] [id number] MD Blake Portillo MD Phone: [phone] [place] [address] PATHOLOGY RPT PROCEDURE Name: MAR GLOVER CHANCE Room: [facility] M.R.#: [id number] Admission: 08/13/19 Date of : 46 Discharge: Report #: [id number] Path Case #: [id number] Performed at: 02 [facility] [place] [address], [place], [place] [id number] MD Aj Guerrero MD Phone: [phone]
--- NOTE | 2019-08-18 15:07 | PATH ---
[address] [address] PATHOLOGY RPT PROCEDURE Name: JARRETT DIAZ Room: [facility]#: [id number] Admission: 08/13/19 Date of : 46 Discharge: Report #: [id number] Path Case #: [id number] Note [facility] Accession Number: [id number] TESTS RESULT FLAG UNITS REF RANGE LAB Clinician Provided Cytology Information No. of containers..01 Other (Miscellaneous) Source: RT RENAL PELVIC WASH DIAGNOSIS: RT RENAL PELVIC WASHINGS ATYPICAL UROTHELIAL CELLS. SEE COMMENT COMMENT: Scattered atypical urothelial cells present singly and in small groups are present which are within the spectrum of reactive atypia although neoplasia cannot be entirely excluded. Reviewed with Dr. Elizabeth Javed and Dr. Beau Pedersen (cytopathologist) who agree with the diagnosis. (LORNA:diya; 08/15/2019) Signed out by: 02 Aj Guerrero MD, Pathologist NPI- [id number] Performed by: 01 Florence Kee, Central Supply Assistant ([facility]) Gross description: 01 25 ML, LT TRACI, CLEAR /LCS 08/15/2019 1156 Local FLAG LEGEND: L-Low Normal,H-High Normal,LL-Alert Low,HH-Alert High <-Panic Low,>-Panic High,A-Abnormal,AA-Critical Abnormal Performed at: [address] [place] [address] Blake Portillo MD, [address] [place] [address] [address] [place] [address] Aj Guerrero MD, Specimen Comment: A courtesy copy of this report has been sent to [phone] Specimen Comment: [phone] Specimen Comment: Report sent to / DR VILLEDA Performed at: [address], [place], [place] [id number] MD Blake Portillo MD Phone: [phone]
== END | disposition home or self-care (01) ==
LOC: M.SUR 06:17
PROVIDERS: Urology
DX: N03.8 Chronic nephritic syndrome with other morphologic changes (principal); R31.0 Gross hematuria; R93.41 Abnormal radiologic findings on diagnostic imaging of renal pelvis, ureter, or bladder; I48.91 Unspecified atrial fibrillation; F41.9 Anxiety disorder, unspecified; F32.9 Major depressive disorder, single episode, unspecified; Z98.890 Other specified postprocedural states; Z79.899 Other long term (current) drug therapy; Z88.0 Allergy status to penicillin; Z88.8 Allergy status to other drugs, medicaments and biological substances; Z98.51 Tubal ligation status; Z86.73 Personal history of transient ischemic attack (TIA), and cerebral infarction without residual deficits; Z79.01 Long term (current) use of anticoagulants; Z95.0 Presence of cardiac pacemaker; Z79.82 Long term (current) use of aspirin; Z95.2 Presence of prosthetic heart valve

== ENCOUNTER 2020-03-07 15:46 | Observation (INO) | payer OTHER ==
[~2020-03-07] VITALS: Ht 170.2 cm; Wt 52.6 kg
[2020-03-07 15:55] VITALS: BP 123/52
[2020-03-07 16:36] LABS: ABSOLUTE EOSINOPHILS 0.2 thou/uL (0.0-0.7); ABSOLUTE LYMPHOCYTES 1.1 thou/uL (0.8-5.3); ABSOLUTE MONOCYTES 0.4 thou/uL (0.0-1.2); ABSOLUTE NEUTROPHILS 1.7 thou/uL (1.6-8.1); BASOPHILS 1.3 %; EOSINOPHILS 4.9 %; HEMATOCRIT 27.2 % (37.0-47.0); HEMOGLOBIN 9.2 gm/dL (12.0-15.0); MCH 27.7 pg (26.0-34.0); MCHC 33.7 g/dL (28.0-37.0); MCV 82.1 fL (80.0-100.0); MONOCYTES 12.5 %; MPV 8.9 fl. (7.2-11.1); NUCLEATED RBCS 0 /100WBC; PLATELET COUNT* 260 thou/uL (150-400); POLYS 50.3 %; RBC 3.31 mil/uL (4.20-5.00); RDW-CV 16.7 % (10.5-14.5); WBC 3.4 thou/uL (4.0-11.0)
[2020-03-07 16:46] LABS: CALCIUM 8.4 mg/dL (8.5-10.1); CREATININE 1.4 mg/dL (0.6-1.3)
[2020-03-07 16:50] LABS: ALBUMIN 3.7 g/dL (3.4-5.0); TOTAL BILIRUBIN 0.6 mg/dL (<0.1-1.0); TOTAL PROTEIN 6.9 g/dL (6.4-8.2)
[2020-03-07 17:12] LABS: URINE BILIRUBIN NEGATIVE (Negative); URINE BLOOD NEGATIVE (Negative); URINE CLARITY CLEAR; URINE COLOR YELLOW; URINE GLUCOSE-RANDOM NEGATIVE (Negative); URINE KETONES NEGATIVE (Negative); URINE LEUKOCYTES-REFLEX NEGATIVE (Negative); URINE NITRITE-REFLEX NEGATIVE (Negative); URINE PROTEIN NEGATIVE (Negative); URINE SPECIFIC GRAVITY 1.015 (1.005-1.030); URINE UROBILINOGEN 0.2 E.U./dl (0.2-1.0)
[2020-03-07 19:16] LABS: APTT 33.7 Seconds (25.0-31.3); INR 2.7; PROTIME 26.9 Seconds (9.20-11.50)
[2020-03-07 19:54] VITALS: BP 121/70
[2020-03-07 20:03] LABS: INR 2.7
[2020-03-07 21:00] VITALS: BP 139/49
[2020-03-08 00:29] VITALS: BP 142/55
[2020-03-08 05:02] VITALS: BP 123/47
[2020-03-08 05:17] LABS: HEMATOCRIT 25.1 % (37.0-47.0); HEMOGLOBIN 8.2 gm/dL (12.0-15.0); MCH 26.9 pg (26.0-34.0); MCHC 32.6 g/dL (28.0-37.0); MCV 82.4 fL (80.0-100.0); MPV 8.7 fl. (7.2-11.1); RBC 3.05 mil/uL (4.20-5.00); RDW-CV 16.6 % (10.5-14.5); WBC 4.1 thou/uL (4.0-11.0)
[2020-03-08 05:24] LABS: INR 3.2; PROTIME 31.6 Seconds (9.20-11.50)
[2020-03-08 05:33] LABS: CREATININE 1.4 mg/dL (0.6-1.3); MAGNESIUM 2.1 mg/dL (1.8-2.4); POTASSIUM 3.8 mmol/L (3.5-5.1); TROPONIN-I LEVEL 0.1 ng/mL (<0.06)
[2020-03-08 08:00] VITALS: BP 113/38
--- NOTE | 2020-03-08 10:43 | EKG ---
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 : 1950 Requested By: Brandon Damico Order Number: [id number] MD: Rolly Resendez Measurements Intervals [place] Rate: 79 P: -75 TX: 34 QRS: 228 QRSD: 97 T: 58 QT: 416 QTc: 477 Interpretive Statements Ventricular-paced rhythm No further analysis attempted due to paced rhythm Baseline wander in lead(s) II,III,aVL,aVF Compared to ECG 07/01/2019 15:18:20 No significant changes Electronically Signed On 03-08-2020 10:43:21 CDT by Rolly Resendez [email or web address] <ELECTRONICALLY SIGNED> By: Rolly Resendez MD, [facility] 03/08/20 1043 1628 1628 Rolly Resendez MD, [facility] /EPI
[2020-03-08 12:56] VITALS: BP 129/32
[2020-03-08 16:04] VITALS: BP 129/32; BP 136/51
--- NOTE | 2020-03-08 16:37 | CON ---
[address] [address] CONSULTATION Name: EMILYJARRETT FLETCHER Room: [address] MLillianRLillian#: [id number] Admission: 03/07/20 Attend Phys: Hanna Mcgee MD Discharge: Date of : 46 Report #: [id number] THIS REPORT FOR: //name// cc: Antonieta Huff Maggie M. DO THIS REPORT FOR: //name// CC: Hanna Huff DATE OF SERVICE: 03/08/2020 CARDIOLOGY CONSULTATION HISTORY OF PRESENT ILLNESS: The patient is a 69-year-old white female who I was asked to see in the hospital today after she had noted to have an abnormal troponin. The history is obtained from the patient. She has an extensive past medical history. She has had multiple hospitalizations here at [facility]. She was actually admitted here in 2006 with right hemiparesis and aphasia. She was found to be in atrial fibrillation. She converted to sinus rhythm on amiodarone. Fortunately, her right hemiparesis resolved. She was admitted here in 2015 with confusion, felt to be secondary to Ambien. She was admitted here in 2016 with confusion. Apparently, she had a drug overdose at that time. She has a history of depression. She was admitted here in 2019 with hematuria. She was felt to have a therapeutic INR at that time. The patient is not very active at this time because of her previous stroke. The patient apparently has a long history of abdominal discomfort. She has been told in the past she has constipation. She has had previous EGD and colonoscopy at [facility]. Yesterday, the epigastric pain became worse. She denied any vomiting, diarrhea, bleeding. She came to the hospital and was admitted. She was noted to have abnormal troponin. I was asked to see her for further evaluation and treatment. PAST MEDICAL HISTORY: She presented in 2006 with a heart murmur. She was found to have evidence of mitral stenosis. She underwent mitral valve replacement using a metal valve at [facility]. She did not require bypass surgery at that time. Recently, she has been followed by a math coach at . She apparently had a stress test and echocardiogram last week at that showed no significant ischemia. Echocardiogram showed normal functioning of the valve. She denies any history of hypertension or diabetes. MEDICATIONS: On admission consisted of aspirin, warfarin, Zoloft. ALLERGIES: SHE HAS AN ALLERGY TO PENICILLIN AND AMOXICILLIN. FAMILY HISTORY: [place] [address] CONSULTATION Name: JARRETT DIAZ Room: [address] Angela Aguilar#: [id number] Admission: 03/07/20 Attend Phys: Hanna Mcgee MD Discharge: Date of : 46 Report #: [id number] SOCIAL HISTORY: She is . She and her live in [place], [place]. No smoking or alcohol abuse. REVIEW OF SYSTEMS: No history of asthma, liver disease, kidney disease or cancer. She has a history of depression, has had suicide attempts in the past. No chronic skin condition. PHYSICAL EXAMINATION: GENERAL: Revealed a middle-aged female lying in bed. She appeared in no distress. VITAL SIGNS: She had a blood pressure of 130/70, pulse is 80, she is afebrile. HEENT: She is anicteric. Conjunctivae are pink. Mucous membranes moist. NECK: Veins are nondistended. CHEST: Clear to auscultation. CARDIOVASCULAR: Regular rate and rhythm, metallic mitral opening and closing sound, grade 2 systolic ejection murmur. ABDOMEN: Tender, but soft. EXTREMITIES: Had no edema. SKIN: Cool and dry. NEUROLOGIC: Nonfocal. Her ECG showed a ventricular paced rhythm. There appeared to be P-wave sensing and ventricular capture. Her workup yesterday, she had a CT scan of the abdomen because of epigastric pain that showed large amount of stool consistent with constipation. LABORATORY WORK: Sodium 140, potassium 3.8, BUN of 15, creatinine 1.4. Her lipase was 268, which was within normal limits. Bilirubin 0.6, SGOT 23, bilirubin 0.6, albumin 3.7. Troponin on admission 0.09, it was 0.12 last night. Previous LDL 143. Previous TSH 2.7. Her INR was not performed, it was 3.2. White blood cell count 4.1, hemoglobin 8.2, hematocrit 25.2. IMPRESSION AND RECOMMENDATIONS: 1. Previous mitral valve replacement. I would continue chronic anticoagulation, maintain an INR of 2.5-3.5. 2. Borderline troponin. Previous normal coronary arteries. Stress test recently showed no evidence of ischemia. Suspect non-myocardial infarction related elevation of troponin. Recommend no further cardiac evaluation at this time. 3. Depression, previous suicide attempt. 4. Epigastric pain. Appears to be a chronic cough. Possibly related to constipation. 5. Elevated LDL. Recommend diet and exercise. 6. Anemia. No history of bleeding. Recommend she follow up with GI. 7. Previous stroke. Suspect secondary to atrial fibrillation[place] [address] CONSULTATION Name: JARRETT DIAZ Room: [address]#: [id number] Admission: 03/07/20 Attend Phys: Hanna Mcgee MD Discharge: Date of : 46 Report #: [id number] anticoagulated. 8. Previous history of atrial fibrillation. No clinical recurrences. 9. Previous placement of a pacemaker. <ELECTRONICALLY SIGNED> By: Rolly Resendez MD, FACC 03/08/20 1637 1413 1503Dvick Resendez MD, FACC /nt
== END 2020-03-08 17:20 | disposition home or self-care (01) ==
LOC: M.ERS 15:46 → M.2W 17:55 → M.TBA-ER 17:55 → M.2W 21:07
PROVIDERS: Emergency Medicine Emergency Medical Services; ADMIT Internal Medicine; ATTEND Internal Medicine
DX: Z03.818 Encounter for observation for suspected exposure to other biological agents ruled out (principal); R10.9 Unspecified abdominal pain; K59.09 Other constipation; R79.89 Other specified abnormal findings of blood chemistry; I51.9 Heart disease, unspecified; I48.91 Unspecified atrial fibrillation; R47.01 Aphasia; F41.9 Anxiety disorder, unspecified; D64.9 Anemia, unspecified; E78.5 Hyperlipidemia, unspecified; F32.9 Major depressive disorder, single episode, unspecified; Z79.01 Long term (current) use of anticoagulants; Z86.73 Personal history of transient ischemic attack (TIA), and cerebral infarction without residual deficits; Z95.2 Presence of prosthetic heart valve; Z79.82 Long term (current) use of aspirin; Z79.899 Other long term (current) drug therapy

== ENCOUNTER → 2020-03-24 | Outpatient (CLI) | payer OTHER | LOC: M.LAB 15:50 | PROVIDERS: ATTEND Internal Medicine Gastroenterology | DX: Z01.812 Encounter for preprocedural laboratory examination (principal); Z11.59 Encounter for screening for other viral diseases; K59.00 Constipation, unspecified ==

== ENCOUNTER → 2021-01-25 | Outpatient (CLI) | payer OTHER | LOC: M.RAD 12:49 | PROVIDERS: ATTEND Family Medicine | DX: Z12.31 Encounter for screening mammogram for malignant neoplasm of breast (principal); N64.89 Other specified disorders of breast ==

== ENCOUNTER 2021-05-21 16:37 | Emergency (ER) | payer OTHER ==
[~2021-05-21] VITALS: Ht 170.2 cm; Wt 56.7 kg
[2021-05-21 17:13] LABS: PROTIME 73.7 Seconds (9.20-11.50)
[2021-05-21 17:21] LABS: INR 7.9
[2021-05-21 18:32] VITALS: BP 149/43
== END 2021-05-21 18:33 | disposition home or self-care (01) ==
LOC: M.ERS 16:37
PROVIDERS: Emergency Medicine Emergency Medical Services
DX: R79.1 Abnormal coagulation profile (principal); H53.8 Other visual disturbances; F32.9 Major depressive disorder, single episode, unspecified; I48.91 Unspecified atrial fibrillation; Z98.890 Other specified postprocedural states; Z98.51 Tubal ligation status; Z86.73 Personal history of transient ischemic attack (TIA), and cerebral infarction without residual deficits; Z79.01 Long term (current) use of anticoagulants; Z79.899 Other long term (current) drug therapy; Z88.1 Allergy status to other antibiotic agents; Z88.0 Allergy status to penicillin

== ENCOUNTER → 2021-06-23 | Outpatient (CLI) | payer OTHER ==
[2021-06-23 13:48] LABS: INR 1.1; PROTIME 11.6 Seconds (9.20-11.50)
== END ==
LOC: M.LAB 05:45
PROVIDERS: ATTEND Anesthesiology
DX: K21.9 Gastro-esophageal reflux disease without esophagitis (principal); R79.1 Abnormal coagulation profile; R13.10 Dysphagia, unspecified

== ENCOUNTER → 2021-07-12 | Outpatient (CLI) | payer OTHER | LOC: M.NUC 05-12 15:48 | PROVIDERS: ATTEND Nurse Practitioner Adult Health | DX: R68.81 Early satiety (principal); R10.13 Epigastric pain; R14.0 Abdominal distension (gaseous) ==

== ENCOUNTER 2021-10-01 19:50 | Emergency (ER) | payer OTHER ==
[~2021-10-01] VITALS: Ht 170.2 cm; Wt 54.4 kg
[~2021-10-01 19:50] MED LIST changes: -COUMADIN6 MG PO; +WARFARIN SODIUM4 MG PO
[2021-10-01] MEDS ORDERED: ASA81BEC PO (20:09)
[2021-10-01] MEDS ORDERED: IRON325 M1 PO (20:10)
[2021-10-01 20:37] LABS: ABSOLUTE EOSINOPHILS 0.1 thou/uL (0.0-0.7); ABSOLUTE MONOCYTES 0.3 thou/uL (0.0-1.2); ABSOLUTE NEUTROPHILS 2.7 thou/uL (1.6-8.1); BASOPHILS 0.8 %; EOSINOPHILS 2.5 %; HEMATOCRIT 32.7 % (37.0-47.0); HEMOGLOBIN 11.1 gm/dL (12.0-15.0); LYMPHOCYTES 23.8 %; MCH 31.1 pg (26.0-34.0); MCV 91.2 fL (80.0-100.0); MONOCYTES 7.7 %; MPV 8.7 fl. (7.2-11.1); NUCLEATED RBCS 0 /100WBC; PLATELET COUNT* 269 thou/uL (150-400); POLYS 65.2 %; RBC 3.58 mil/uL (4.20-5.00); RDW-CV 14.4 % (10.5-14.5); WBC 4.2 thou/uL (4.0-11.0)
[2021-10-01 20:39] LABS: CALCIUM 8.9 mg/dL (8.5-10.1); CREATININE 1.2 mg/dL (0.6-1.3); POTASSIUM 3.4 mmol/L (3.5-5.1)
[2021-10-01 20:42] LABS: INR 2.4; PROTIME 24.1 Seconds (9.20-11.50)
[2021-10-01 21:15] VITALS: BP 111/73
== END 2021-10-01 21:15 | disposition home or self-care (01) ==
LOC: M.ERS 19:50
PROVIDERS: Emergency Medicine
DX: S91.112A Laceration without foreign body of left great toe without damage to nail, initial encounter (principal); I48.91 Unspecified atrial fibrillation; F32.9 Major depressive disorder, single episode, unspecified; Z98.890 Other specified postprocedural states; Z98.51 Tubal ligation status; Z86.73 Personal history of transient ischemic attack (TIA), and cerebral infarction without residual deficits; Z79.82 Long term (current) use of aspirin; Z79.899 Other long term (current) drug therapy; Z88.0 Allergy status to penicillin; Z88.8 Allergy status to other drugs, medicaments and biological substances; X58.XXXA Exposure to other specified factors, initial encounter; Y93.89 Activity, other specified; Y92.89 Other specified places as the place of occurrence of the external cause; Y99.8 Other external cause status